=== PATIENT | female | born 1955 | race Caucasian/White ===

== ENCOUNTER 2016-08-16 11:13 | Inpatient (IN) ==
--- NOTE | 2016-08-16 08:32 | Discharge Summary ---
<Dyana Castro - Last Filed: 08/16/16 12:33> - Discharge Medications Home Medications: Albuterol Sulfate [Albuterol Inhaler] 2 puff IH Q4H PRN 08/09/15 [History] Aspirin [Adult Low Dose Aspirin EC] 81 mg PO DAILY 08/09/15 [History] Atorvastatin [Lipitor] 40 mg PO DAILY 08/09/15 [History] Beclomethasone Diprop 40mcg [QVAR 40 mcg] 2 gm IH BID 08/09/15 [History] Citalopram [CeleXA] 10 mg PO DAILY 08/09/15 [History] Ferrous Sulfate 324 mg PO BID 08/09/15 [History] Levothyroxine Sodium [Synthroid] 225 mcg PO DAILY 08/09/15 [History] Lisinopril/Hydrochlorothiazide [Zestoretic 10-12.5 mg Tablet] 1 each PO DAILY [History] Metformin HCl [Glucophage] 1,000 mg PO BID 08/09/15 [History] NIFEdipine [Nifedipine ER] 30 mg PO DAILY 08/09/15 [History] Pantoprazole Sodium [Protonix] 40 mg PO DAILY 08/09/15 [History] Pioglitazone [Actos] 45 mg PO DAILY 08/09/15 [History] Polyethylene Glycol 3350 [MiraLAX] 17 gm PO DAILY 11/26/15 [History] Ranitidine HCl [Zantac] 150 mg PO BID 11/26/15 [History] Solifenacin Succinate [Vesicare] 5 mg PO DAILY 11/26/15 [History] Spironolactone [Aldactone] 25 mg PO DAILY 11/26/15 [History] OxyCODONE Immed Rel [Roxicodone 5 MG] 5 - 10 mg PO Q6HR PRN #40 tablet 08/16/16 [Rx] Allergies/Adverse Reactions: Allergies No Known Allergies Allergy (Verified 08/16/16 13:22) Primary care physician: Ximena Merchant, - Patient Status Disposition: Home, Self-Care Condition: Good - Discharge Instructions Follow Up With: Mekhi Underwood MD [Partnered Physician] - 09/06/16 3:35 pm Dyana Castro, PAC [Physician Hoisting Pile Driving Engineer] - 08/23/16 1:00 pm Ximena Merchant MD [Primary Care Provider] - Osvaldo Mosley MD [Partnered Physician] - 01/04/17 9:00 am - Hospital Course Hospital course: Ms. Hardy is a 61 year old female - Time Spent with Patient Total time spent providing and/or coordinating discharge services: <KjMekhi - Last Filed: 08/17/16 08:24> Date of Encounter: 08/17/16 Time of Encounter: 08:23 - Discharge Diagnosis (1) Rotator cuff tear arthropathy of right shoulder Priority: Primary Status: Acute (2) Obesity Priority: Secondary Status: Chronic Qualifiers: Obesity type: unspecified obesity type Obesity severity: unspecified obesity severity Qualified Code(s): E66.9 - Obesity, unspecified (3) HLD (hyperlipidemia) Priority: Secondary Status: Chronic Qualifiers: Hyperlipidemia type: unspecified Qualified Code(s): E78.5 - Hyperlipidemia , unspecified (4) COPD (chronic obstructive pulmonary disease) Priority: Secondary Status: Chronic Qualifiers: COPD type: unspecified COPD Qualified Code(s): J44.9 - Chronic obstructive pulmonary disease, unspecified (5) DMII (diabetes mellitus, type 2) Priority: Secondary Status: Chronic Qualifiers: Diabetes mellitus complication status: without complication Qualified Code( s): E11.9 - Type 2 diabetes mellitus without complications (6) KAILEY (obstructive sleep apnea) Priority: Secondary Status: Chronic Primary care physician: Ximena Merchant, - Patient Status Functional capacity at discharge: independent ambulation Overall status at discharge: patient is progressing back to baseline - Hospital Course Hospital course: Ms. Hardy is a 61 year old female The patient had an uneventful postoperative course. They received antibiotics and physical therapy and were discharged in stable condition. There will follow -up in the office in 2 weeks. - Time Spent with Patient Total time spent providing and/or coordinating discharge services:
--- NOTE | 2016-08-16 11:45 | History & Physical Report ---
Date of Encounter: 08/16/16 Time of Encounter: 11:44 24 Hour HP Update - Instructions Instructions: If the History and Physical is less than 30 days old and was completed prior to A.M. admission and or procedure and has NOT been updated on calendar day of procedure please complete this update prior to performing procedure. - Update Patient reports changes in Medical Condition: No Changes in assessment/condition: No Changes in Medication: No Preop tests/diagnostics Reviewed: Yes Surgery Remains Indicated: Yes Consent for Planned Operative Procedure(s) Verified: Yes - Pre-Operative Checklist Preoperative Checklist Indicated: No Prophylactic Antibiotic Ordered: Yes Is VTE Prophylaxis Indicated?: Yes
[2016-08-16] MEDS ORDERED: ceFAZolin 2,000 MG in D5% in Water (Mini-Bag+) 100 ML IVPB ONE (12:09)
[2016-08-16] MEDS ORDERED: Albuterol 2.5 MG/3 ML NEBULIZER IH ONE (12:34)
[2016-08-16] MEDS ORDERED: Famotidine 20 MG/2 ML VIAL IVP ONE (12:40)
--- NOTE | 2016-08-16 12:43 | Anesthesia Evaluation PreOp ---
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 HX Other Medical History: Diabetes Type II (Accu check 112), Thyroid, GERD, Other ( Morbid Obesity) Anesthesia History: No Prior Anesthetic Complications : No Alcohol Use: none Drug use: none Medications and Allergies Albuterol Sulfate [Albuterol Inhaler] 90 mcg IH Q4H PRN 08/09/15 [History] Aspirin [Adult Low Dose Aspirin EC] 81 mg PO DAILY 08/09/15 [History] Atorvastatin [Lipitor] 40 mg PO DAILY 08/09/15 [History] Beclomethasone Diprop 40mcg [QVAR 40 mcg] 2 gm IH BID 08/09/15 [History] Citalopram [CeleXA] 10 mg PO DAILY 08/09/15 [History] Ferrous Sulfate 324 mg PO BID 08/09/15 [History] Levothyroxine Sodium [Synthroid] 225 mcg PO DAILY 08/09/15 [History] Lisinopril/Hydrochlorothiazide [Zestoretic 10-12.5 mg Tablet] 1 each PO DAILY [History] Metformin HCl [Glucophage] 1,000 mg PO BID 08/09/15 [History] NIFEdipine [Nifedipine ER] 30 mg PO DAILY 08/09/15 [History] Pantoprazole Sodium [Protonix] 40 mg PO DAILY 08/09/15 [History] Pioglitazone [Actos] 45 mg PO DAILY 08/09/15 [History] Cefdinir [Omnicef] 300 mg PO BID 11/26/15 [History] Polyethylene Glycol 3350 [MiraLAX] 17 gm PO DAILY 11/26/15 [History] Ranitidine HCl [Zantac] 150 mg PO BID 11/26/15 [History] Solifenacin Succinate [Vesicare] 5 mg PO DAILY 11/26/15 [History] Spironolactone [Aldactone] 25 mg PO DAILY 11/26/15 [History] OxyCODONE Immed Rel [Roxicodone 5 MG] 5 - 10 mg PO Q6HR PRN #40 tablet 08/16/16 [Rx] Allergies No Known Allergies Allergy (Unverified 07/28/15 14:07) - Meds/Allergy Pre-op Review Medications Reviewed: Yes Allergies Reviewed: Yes Beta Blockers on Current Med List: No Anesthesia Results - Labs Laboratory Tests 07/31/16 07/31/16 13:37 13:37 Hgb 12.3 Hct 38.1 Plt Count 238 Sodium 139 Potassium 4.4 BUN 21 H Creatinine 0.95 - Imaging EKG: report reviewed (SB) Additional studies: EF 60% ECHO 2013 Anesthesia Exam O2 Sat Height 1.63 m Height 1.63 m Height 1.63 m Weight 142.428 kg Weight 142.428 kg Weight 142.428 kg O2 Sat by Pulse Oximetry 94 Vital Signs Temp Pulse Resp BP Pulse Ox 97.8 F 58 18 134/71 94 L 08/16/16 11:41 08/16/16 11:41 08/16/16 11:41 08/16/16 11:41 08/16/16 11:41 Height: 5'4 Weight: 314 lbs NPO (# of Hours): MN Pain Scale: 0 - HEENT Pupil (Motor): Pupils equal, EOMI Mallampati: III Teeth: Normal Oral Opening: Greater than 3 - WAFER [employer]ODUCTION LEAD WORKER LOC: Oriented [employer]AFER PRODUCTION LEAD WORKER Motor: Normal RUE, Normal LUE, Normal RLE, Normal LLE, Normal Face [employer]ER [employer]ODUCTION LEAD WORKER Sensory: Normal: RUE, LUE, RLE, LLE, Face - Cardiac Rhythm: Regular Murmur: None JVD: No Carotid Bruit: No - Pulmonary Breath Sounds: bilateral Clear Respiratory Effort: Symmetrical Anesthesia Assess/Plan ASA Score: 3 (MO HTN) Modified Kina Scale for Level of Consciousness: Cooperative, oriented, and tranquil Anesthetic Plan: General, Regional Monitoring Plan: Standard Monitors Recovery Plan: PACU (Discussed GA, agreews to proceed)
[2016-08-16] MEDS ORDERED: Vancomycin 2,000 MG in D5% in Water 250 ML IV ONE (12:57)
[2016-08-16] MEDS ORDERED: Tetracaine/PF 20 MG/2 ML AMPUL SPINA ONE (13:00)
[2016-08-16] MEDS ORDERED: ROPIVACAINE HCL/PF 0.5% 30 ML VIAL ONE (13:00)
[2016-08-16] MEDS ORDERED: Bupivacaine/Clonidine Syringe 1 EACH SYRINGE ONE (13:01)
[2016-08-16] MEDS: Ringers Solution, Lactated 1,000 ML IVC SCH ×2 (13:02→15:30)
--- NOTE | 2016-08-16 13:34 | Anesthesia Procedures ---
Date of Encounter: 08/16/16 Time of Encounter: 13:23 Procedures: Anesthesia - Nerve Block Procedure Date: 08/16/16 Time: 13:23 Allergies/Adv Reactions: [id number] Pre-op Diagnosis: R shoulder RTC arthropathy Surgical Procedure: R TSR, Reverse Checklist: Correct Patient Identifier, Correct procedure, History checked Correct side: Right Blood Thinner: No Monitor Applied: EKG, BP, Pulse Oximetry Supplemental Oxygen via Nasal Cannula (L/min): 4 Sedation: Versed (mg): 3 Sedation: Fentanyl (mcg): 50 Indication: Post Op Analgesia (requested by Dr. Underwood) Pre-op Neuro Deficits: No Block Type: Supraclavicular, Other (SCP, ICB) Catheter placed: No Sterile Technique: Yes Ultrasound used: Yes Anatomy identified: Yes Visual spread of Local: Yes Neuro Stimulation: No Blood on Needle Aspiration: No Smooth Injection of Local: Yes Pain with Injection of Local: No Prep: Chlorhexadine Needle: 22 x 50 mm Stimuplex Local: 0.25% Bupivicaine w/Clonidine 20 mcg/cc (20mL), Tetracaine (1%, 2mL), Ropivacaine (30mL 0.5%) Number of Attempts: 1 Complications: None/effective block Vitals: 3 Vital Signs Time preprocedure postprocedure BP 124/69 125/83 Pulse 54 64 Resp 16 15 O2 Sat 99 98
[2016-08-16] MEDS ORDERED: Ondansetron 4 MG/2 ML VIAL IVP PRN ×2 (13:35→15:58)
[2016-08-16] MEDS ORDERED: *HR* HYDROmorphone (PF) 1 MG/ML SYRINGE IVP PRN (13:35)
[2016-08-16] MEDS ORDERED: *HR* Labetalol 100 MG/20 ML MDV IVP PRN (13:35)
[2016-08-16] MEDS ORDERED: Vancomycin 1,000 MG VIAL ONE (13:38)
[2016-08-16] MEDS ORDERED: *HR* Midazolam HCl 2 MG/2 ML VIAL ONE (14:14)
[2016-08-16] MEDS ORDERED: Lidocaine -MPF 2% 2 ML VIAL ONE (14:14)
[2016-08-16] MEDS ORDERED: Lidocaine -MPF 4% 5 ML AMPUL ONE (14:14)
[2016-08-16] MEDS ORDERED: *HR* FentaNYL (PF) 100 MCG/2 ML VIAL ONE (14:14)
[2016-08-16] MEDS ORDERED: *HR* Propofol 200 MG/20 ML VIAL IVP ONE (14:14)
--- NOTE | 2016-08-16 14:40 | Orthopedic Operative Note ---
Date of procedure: 08/16/16 Pre-op diagnosis: Right cuff tear arthropathy Post-op diagnosis: same Procedure: Procedure: Right Total Shoulder Replacment Reverse Estimated blood loss: 200 cc Hardware:Arthrex medium glenoid baseplate, 2 4.5 screws. 1 6.5 screw, 39 lateral glenosphere, 6 humeral stem, poly insert 3 and 6 metal Exam Under anesthesia: Full motion and no instability Procedural Notes: Irreparable tear supraspinatus tendon. Operative procedure: The patient was brought to the operating room and placed on the operating room table. After general anesthesia was administered the operative shoulder was examined. Findings were noted. The patient was placed in the modified beachchair position. All pressure points were padded appropriately. And the head was stabilized in the neutral position. The operative extremity was prepped and draped in the sterile surgical fashion. The patient received IV antibiotics prior to skin incision. A standard deltopectoral approach was made to the operative shoulder. Incision was made to the skin and subcutaneous tissue,hemo stasis was obtained with Bovie cautery. Using careful blunt dissection the cephalic vein was identified and mobilized medially. The deltopectoral interval was developed and the clavipectoral fascia was incised. The subscap was released off the lesser tuberosity and tagged with #2 FiberWire suture. The humerus was dislocated patient noted to have irreparable tear supraspinatus tendon, and the humeral cut was made along the anatomic neck. Anterior and posterior Bankart retractors were placed to expose the glenoid. The glenoid guide was seated and the centering hole was made. It was reamed with the appropriate reamer. The median baseplate was seated and secured with (2) 4.5 screws and one 6.5 screw. The baseplate was irrigated and dried and the turning and lateral Glenosphere was seated and secured with the Burton taper. The Burton taper was tested and found to be secure the humerus was redislocated and prepared with the diaphyseal reamers, followed by a broaching process up to the appropriate size 6 in the patient's anatomic version. The metaphyseal reamer was then utilized. Trial reduction found the shoulder to be relocatable. Trial components were removed and drill holes were placed in the lesser tuberosity. They were filled with #5 FiberWire suture . These sutures were used for a subscap repair. The appropriate 6 stem was impacted in place in the patient's anatomic version. Trial reduction found the shoulder to be relocatable and stable with the appropriate 6 metal 3 Kamla Trial component was removed and the real 6 metal 3 Kamla was seated and secured the shoulder was reduced. The shoulder had excellent motion and excellent stability and no evidence of dislocation. The deep tissue was irrigated with pulse irrigation. The subscap was repaired. The deltopectoral interval was closed with a running #1 PDS suture, subcutaneous tissue was irrigated and closed with 0 PDS suture, the skin was closed with Dermabond. The patient was placed in a sterile dressing, abduction brace and extubated. The patient was then transferred to the recovery room in stable condition. Anesthesia: JULIANA Surgeon: Mekhi Underwood Career Technical Education Instructor: Dyana Castro Condition: stable Disposition: PACU
[2016-08-16] MEDS ORDERED: Dexamethasone 4 MG/ML VIAL ONE (14:41)
[2016-08-16] MEDS ORDERED: Ondansetron 4 MG/2 ML VIAL ONE (14:41)
[2016-08-16] MEDS ORDERED: EPHEDrine 50 MG/ML VIAL ONE (14:44)
--- NOTE | 2016-08-16 15:25 | Anesthesia Evaluation Post Op ---
Date of Encounter: 08/16/16 Time of Encounter: 14:24 - Vital Signs Vital Signs: Vital Signs/O2 Sat/Glucose, Most Current Temp Pulse Resp BP Pulse Ox 08/16/16 15:05 51 16 110/64 97 08/16/16 14:55 98.2 F 57 14 107/52 96 08/16/16 13:25 64 16 125/83 95 08/16/16 13:15 57 16 124/69 96 08/16/16 13:06 18 134/71 94 L 08/16/16 11:41 97.8 F 58 18 134/71 94 L - Lungs Lungs: Clear Ascult./Percussion - Airway Airway: Non-obstructed - Cardiovascular Regular Rate - Mental Status Mental Status: Alert & Oriented, Answers Appropriately - Pain Pain Scale: 0 - Nausea Vomiting Nausea Vomiting: Not Present - Hydration Hydration: Ice chips, Has not voided - Discharge PostOp Status: Transfer Patient to floor
[2016-08-16 15:38] LABS: Hematocrit 36.7 % (35.3-44.9); Hemoglobin 12.5 g/dL (11.5-15.4)
[2016-08-16] MEDS ORDERED: Sennosides 8.6 MG TABLET PO PRN (15:58)
[2016-08-16] MEDS ORDERED: Temazepam 15 MG CAPSULE PO PRN (15:58)
[2016-08-16] MEDS ORDERED: *HR* OxyCODONE Immed Rel 5 MG TABLET PO PRN (15:58)
[2016-08-16] MEDS ORDERED: MOM Conc 10 ML UD.LIQ PO PRN (15:58)
[2016-08-16] MEDS ORDERED: Naloxone 0.4 MG/ML INJ IVP PRN (15:58)
[2016-08-16] MEDS ORDERED: ceFAZolin 3,000 MG in D5% in Water 100 ML IVPB SCH (16:00)
[2016-08-16] MEDS: *HR* Enoxaparin 30 MG/0.3 ML SYRINGE SQ SCH (17:21)
[2016-08-16] MEDS ORDERED: *HR* Enoxaparin 30 MG/0.3 ML SYRINGE SQ SCH (18:00)
[2016-08-16] MEDS: Beclomethasone 40mcg MDI IH SCH (20:56)
[2016-08-16] MEDS: ceFAZolin 3,000 MG in D5% in Water 100 ML IVPB SCH (21:16)
[2016-08-16] MEDS: Famotidine 20 MG TABLET PO SCH (21:19)
[2016-08-16] MEDS: *HR* Metformin 500 MG TABLET PO SCH (21:20)
[2016-08-17 05:47] LABS: Hematocrit 35.9 % (35.3-44.9); Hemoglobin 12.2 g/dL (11.5-15.4)
[2016-08-17] MEDS: *HR* OxyCODONE Immed Rel 5 MG TABLET PO PRN ×4 (05:49→19:24)
[2016-08-17] MEDS: *HR* Enoxaparin 30 MG/0.3 ML SYRINGE SQ SCH ×2 (05:50→16:56)
[2016-08-17] MEDS: ceFAZolin 3,000 MG in D5% in Water 100 ML IVPB SCH (05:50)
[2016-08-17] MEDS: Famotidine 20 MG TABLET PO SCH ×2 (07:28→21:13)
[2016-08-17] MEDS: Spironolactone 25 MG TABLET PO SCH (07:28)
[2016-08-17] MEDS: Aspirin Enteric Coated 81 MG Tablet PO SCH (07:28)
[2016-08-17] MEDS: *HR* Pioglitazone 45 MG TABLET PO SCH (07:28)
[2016-08-17] MEDS: *HR* Metformin 500 MG TABLET PO SCH ×2 (07:28→21:12)
[2016-08-17] MEDS: NIFEdipine XL (24 HR) 30 MG TAB.ER.24 PO SCH (07:28)
[2016-08-17] MEDS: Acetaminophen 325 MG TABLET PO PRN (07:30)
[2016-08-17] MEDS: Beclomethasone 40mcg MDI IH SCH ×2 (08:02→21:02)
--- NOTE | 2016-08-17 08:25 | Orthopedics Progress Note ---
Date of Encounter: 08/17/16 Time of Encounter: 08:25 - Assessment and Plan (1) Rotator cuff tear arthropathy of right shoulder Current Visit: Yes Status: Acute (2) Obesity Current Visit: No Status: Chronic Qualifiers: Obesity type: unspecified obesity type Obesity severity: unspecified obesity severity Qualified Code(s): E66.9 - Obesity, unspecified (3) HLD (hyperlipidemia) Current Visit: No Status: Chronic Qualifiers: Hyperlipidemia type: unspecified Qualified Code(s): E78.5 - Hyperlipidemia , unspecified (4) COPD (chronic obstructive pulmonary disease) Current Visit: No Status: Chronic Qualifiers: COPD type: unspecified COPD Qualified Code(s): J44.9 - Chronic obstructive pulmonary disease, unspecified (5) DMII (diabetes mellitus, type 2) Current Visit: No Status: Chronic Qualifiers: Diabetes mellitus complication status: without complication Qualified Code( s): E11.9 - Type 2 diabetes mellitus without complications (6) KAILEY (obstructive sleep apnea) Current Visit: No Status: Chronic Subjective Interval history: Patient was seen this morning doing well without complaints. Afebrile vital signs stable. Operative extremity: Neurovascularly intact Dressing clean dry and intact Calves nontender Assessment and plan: Continue with postoperative care Discharged today Objective Vital signs: Vital Signs Temp Pulse Resp BP Pulse Ox 08/17/16 08:03 16 95 08/17/16 06:23 97.9 F 58 16 117/73 95 08/17/16 04:45 97.8 F 53 15 114/76 94 L 08/17/16 00:00 97.7 F 59 16 106/64 93 L 08/16/16 20:56 22 87 L 08/16/16 19:15 97.7 F 62 15 135/68 92 L 08/16/16 18:14 98.4 F 57 16 123/74 90 L 08/16/16 17:19 97.3 F L 53 12 101/65 96 08/16/16 16:45 97.5 F L 60 16 140/74 93 L 08/16/16 16:25 98.4 F 56 16 108/72 94 L 08/16/16 15:35 52 16 117/59 96 08/16/16 15:25 98.0 F 52 16 117/62 96 08/16/16 15:15 54 16 113/67 96 08/16/16 15:05 51 16 110/64 97 08/16/16 14:55 98.2 F 57 14 107/52 96 08/16/16 13:25 64 16 125/83 95 08/16/16 13:15 57 16 124/69 96 08/16/16 13:06 18 134/71 94 L 08/16/16 11:41 97.8 F 58 18 134/71 94 L Intake and Output 08/16/16 08/17/16 08/17/16 23:59 07:59 15:59 Intake Total 100 / 100 Balance 100 / 100 Intake: IV Fluids 100 / 100 Ancef 3,000 MG In 100 / 100 Dextrose 5% 100 ML @ 200 mls/hr IVPB Q8H [facility] Rx#: [id number] Other: Blood Glucose* 199 109 - Labs CBC & BMP: 08/17/16 05:33 Labs: Abnormal lab results POC Glucose 112 (58-89) H 08/16/16 15:56 - VTE Documentation of Mechanical Device: Venous foot pump, device Consult Discharge Plan - Plan Referrals: Mekhi Underwood MD [Partnered Physician] - 09/06/16 3:35 pm Dyana Castro, PAC [Physician Wastewater Treatment Plant Attendant] - 08/23/16 1:00 pm Ximena Merchant MD [Primary Care Provider] - Osvaldo Mosley MD [Partnered Physician] - 01/04/17 9:00 am
[2016-08-17] MEDS ORDERED: LEVOTHYROXINE SODIUM 225 MCG PO SCH (09:00)
[2016-08-17] MEDS: *HR* HYDROmorphone (PF) 1 MG/ML SYRINGE IVP PRN ×3 (11:59→21:09)
[2016-08-18] MEDS: *HR* OxyCODONE Immed Rel 5 MG TABLET PO PRN ×3 (00:42→09:21)
[2016-08-18] MEDS: *HR* HYDROmorphone (PF) 1 MG/ML SYRINGE IVP PRN (01:42)
[2016-08-18 05:02] LABS: Hematocrit 33.4 % (35.3-44.9); Hemoglobin 10.9 g/dL (11.5-15.4)
[2016-08-18] MEDS: *HR* Enoxaparin 30 MG/0.3 ML SYRINGE SQ SCH (05:02)
--- NOTE | 2016-08-18 06:22 | Orthopedics Progress Note ---
Date of Encounter: 08/18/16 Time of Encounter: 06:21 - Assessment and Plan (1) Rotator cuff tear arthropathy of right shoulder Current Visit: Yes Status: Acute (2) Obesity Current Visit: No Status: Chronic Qualifiers: Obesity type: unspecified obesity type Obesity severity: unspecified obesity severity Qualified Code(s): E66.9 - Obesity, unspecified (3) HLD (hyperlipidemia) Current Visit: No Status: Chronic Qualifiers: Hyperlipidemia type: unspecified Qualified Code(s): E78.5 - Hyperlipidemia , unspecified (4) COPD (chronic obstructive pulmonary disease) Current Visit: No Status: Chronic Qualifiers: COPD type: unspecified COPD Qualified Code(s): J44.9 - Chronic obstructive pulmonary disease, unspecified (5) DMII (diabetes mellitus, type 2) Current Visit: No Status: Chronic Qualifiers: Diabetes mellitus complication status: without complication Qualified Code( s): E11.9 - Type 2 diabetes mellitus without complications (6) KAILEY (obstructive sleep apnea) Current Visit: No Status: Chronic Subjective Interval history: Patient was seen this morning doing well without complaints. Afebrile vital signs stable. Operative extremity: Neurovascularly intact Dressing clean dry and intact Calves nontender Assessment and plan: Continue with postoperative care Discharged today held yesterday for pain control Objective Vital signs: Vital Signs Temp Pulse Resp BP Pulse Ox 08/18/16 01:41 97.9 F 61 16 111/67 93 L 08/17/16 21:02 18 92 L 08/17/16 20:47 98.2 F 59 17 110/67 92 L 08/17/16 14:08 97.9 F 68 16 119/78 95 08/17/16 11:10 97.6 F 63 16 112/62 96 08/17/16 08:03 16 95 08/17/16 06:23 97.9 F 58 16 117/73 95 Intake and Output 08/17/16 08/17/16 08/18/16 15:59 23:59 07:59 Intake Total 810 / 810 Output Total 750 / 750 Balance 60 / 60 Intake: Oral 810 / 810 Output: Urine 750 / 750 Other: Meal Breakfast Percent of Meal Consumed 100% # Bowel Movements 1 Blood Glucose* 141 158 - Labs CBC & BMP: 08/18/16 04:40 Labs: Abnormal lab results Hgb 10.9 g/dL (11.5-15.4) L 08/18/16 04:40 Hct 33.4 % (35.3-44.9) L 08/18/16 04:40 POC Glucose 133 (58-89) H 08/17/16 16:56 - VTE Documentation of Mechanical Device: Venous foot pump, device Consult Discharge Plan - Plan Additional Instructions: Discharge Instructions: Total Shoulder Please call [facility] ([phone]), your Primary Care Physician, or report to the Emergency Room if you have any of the following symptoms: Nausea, vomiting, fever greater that 101.5, swelling, chest pain, shortness of breath, increased pain/redness/drainage/odor for your incision site, numbness/ tingling, or any other concerning symptoms. ACTIVITY: Always keep your arm in the sling. Do not raise your arm away from your body. Do not use your arm to help with getting in or out of bed. No weight bearing permitted. Only perform those exercises given to you by your therapist. MEDICATIONS: Upon discharge resume your home medications. Take all the medications as prescribed. Take a stool softener if taking narcotic pain medications. Stool softeners are only effective if you drink enough fluids. Drink 6-8 glass of water or fluids a day, unless this is not allowed for another health problem. Despite using stool softeners, if you haven't had a bowel movement in 3 days, please switch to a gentle laxative. Gentle laxatives are sold over the counter. You should have a bowel movement within 24 hours, if not call the office. You will be discharged from the hospital with a prescription for pain medication. You are encouraged to decrease the use of narcotic pain medication as tolerated. Should you require a refill, please call the office. [facility] prescribes narcotic pain medication for only 4-6 weeks after surgery. If you require pain medication beyond this time period, you may be referred to your Primary Care Physician or to the Pain Clinic for further evaluation. Plan ahead for refills on pain medication as many narcotics either need to be picked up at the office or mailed. It is best to call 48-72 hours in advance of needing a prescription refill so you don't run out of medication. To help control the post-operative pain, you may take NSAIDs (Aleve,Advil, Motrin, ibuprofen, naprosyn) or Tylenol as prescribed on the bottle in addition to the pain medication. WOUND CARE: Leave the dressing on for 7 days. You may change the dressing if it becomes saturated greater than 50%. You can shower but not a tub bath or submerge your incision in water. Wash your hands with antibacterial soap, rinse and dry prior to any wound care. If you have beatriz the visiting nurse or rehab facility can remove the stapes 10-14 days after surgery and place steri -strips across the wound. Leave the steri-strips in place until they fall off on their won. You may let water from the shower run on top of the steri- stirips. If you do not have a visiting nurse or rehab facility, you will need to return to the office at 10-14 days for the beatriz to be removed. FOLLOW-UP: Please follow up with your surgeon in the orthopedic clinic, as scheduled Referrals: Mekhi Underwood MD [Partnered Physician] - 09/06/16 3:35 pm Dyana Castro PAC [Physician Risk Manager] - 08/23/16 1:00 pm Ximena Merchant MD [Primary Care Provider] - 08/28/16 2:00 pm Osvaldo Mosley MD [Partnered Physician] - 01/04/17 9:00 am
[2016-08-18] MEDS: Spironolactone 25 MG TABLET PO SCH (07:34)
[2016-08-18] MEDS: *HR* Pioglitazone 45 MG TABLET PO SCH (07:34)
[2016-08-18] MEDS: Aspirin Enteric Coated 81 MG Tablet PO SCH (07:34)
[2016-08-18] MEDS: *HR* Metformin 500 MG TABLET PO SCH (07:34)
[2016-08-18] MEDS: Acetaminophen 325 MG TABLET PO PRN (07:35)
[2016-08-18] MEDS: NIFEdipine XL (24 HR) 30 MG TAB.ER.24 PO SCH (07:35)
[2016-08-18] MEDS: Famotidine 20 MG TABLET PO SCH (07:35)
[2016-08-18 07:36] VITALS: BP 116/73
[2016-08-18] MEDS: Beclomethasone 40mcg MDI IH SCH (07:49)
== END 2016-08-18 10:45 | disposition home or self-care (01) | DRG 315 ==
LOC: SAMDAY 11:13 → 3NENU 15:53
PROVIDERS: ADMIT Orthopaedic Surgery; ATTEND Orthopaedic Surgery

== ENCOUNTER 2020-02-12 05:56 | Inpatient (IN) ==
[2020-02-12 06:42] LABS: Basophils % 0.2 %; Hematocrit 39.5 % (35.3-44.9); Hemoglobin 12.8 g/dL (11.5-15.4); Immature Granulocytes % 0.9 % (0-4); Lymphocytes # 0.6 K/mcL (0.6-4.6); Lymphocytes % 5.2 %; Mean Corpuscular HGB Conc 32.4 g/dL (31.6-35.5); Mean Corpuscular Hemoglobin 27.9 pg (28.0-33.3); Mean Corpuscular Volume 86.2 fL (83.0-100.0); Mean Platelet Volume 10.1 fL (9.4-12.4); Monocytes # 0.4 K/mcL (0.0-1.3); Monocytes % 3.6 %; Neutrophils # 10.8 K/mcL (1.6-8.9); Platelet Count 251 K/mcL (140-400); Red Blood Count 4.58 M/mcL (3.82-4.97); Red Cell Distribution Width 13.8 % (11.5-14.5); Segmented Neutrophils % 90.1 %; White Blood Count 11.9 K/mcL (4.3-11.1)
[2020-02-12 06:51] LABS: INR 0.9; Prothrombin Time 10.5 Seconds (9.4-12.1)
[2020-02-12 06:59] LABS: BUN/Creatinine Ratio 22 (6-26); Blood Urea Nitrogen 18 mg/dL (8-23); Calcium 9.3 mg/dL (8.6-10.3); Carbon Dioxide 28 mEq/L (23-29); Chloride 99 mEq/L (98-107); Glucose 343 mg/dL (70-105); Osmolality,Calculated 293 (280-300); Potassium 4.3 mEq/L (3.5-5.1); Sodium 134 mEq/L (136-145); eGFR For African Americans > 60 (> 60); eGFR For Non-African Americans > 60 (> 60)
[2020-02-12 07:00] LABS: Troponin I < 0.03 ng/mL (< 0.04)
[2020-02-12] MEDS ORDERED: Isovue-370 500 ML BOTTLE IVP ONE (07:06)
[2020-02-12 07:14] LABS: Thyroid Stimulating Hormone 1.299 mcIU/mL (0.340-5.600)
[2020-02-12 08:25] LABS: Adenovirus Not Detected (Not Detect); Bordetella Pertussis Not Detected (Not Detect); Chlamydophila pneumoniae Not Detected (Not Detect); Coronavirus 229E Not Detected (Not Detect); Coronavirus HKU1 Not Detected (Not Detect); Coronavirus NL63 Not Detected (Not Detect); Coronavirus OC43 Not Detected (Not Detect); Human Metapneumovirus Not Detected (Not Detect); Human Rhinovirus/Enterovirus Not Detected (Not Detect); Influenza A Subtype 2009 H1 Not Detected (Not Detect); Influenza B Not Detected (Not Detect); Mycoplasma pneumoniae Not Detected (Not Detect); Parainfluenza Virus 1 Not Detected (Not Detect); Parainfluenza Virus 2 Not Detected (Not Detect); Parainfluenza Virus 3 Not Detected (Not Detect); Parainfluenza Virus 4 Not Detected (Not Detect); Respiratory Syncytial Virus Not Detected (Not Detect); SARS-CoV-2 Not Detected (Not Detect)
[2020-02-12] MEDS ORDERED: Naloxone 0.4 MG/ML INJ IVP PRN (09:06)
[2020-02-12] MEDS ORDERED: Ipratropium/Albuterol Neb 3 ML IH PRN (13:07)
[2020-02-12] MEDS: MethylPREDNISolone 40 MG/ML VIAL IVP SCH ×2 (14:59→19:59)
[2020-02-12] MEDS ORDERED: D5% in Water 1,000 ML IVC PRN (16:09)
[2020-02-12] MEDS ORDERED: *HR* Dextrose 50 % in Water (Vial) 50 ML VIAL IVP PRN (16:09)
[2020-02-12] MEDS ORDERED: Dextrose Gel 15 GM/37.5 ML TUBE PO PRN ×2 (16:09)
[2020-02-12] MEDS: Insulin LISPRO 300 UNITS/3 ML VIAL SQ SCH (17:36)
[2020-02-13 01:20] LABS: Basophils % 0.1 %; Hematocrit 37.9 % (35.3-44.9); Hemoglobin 12.6 g/dL (11.5-15.4); Immature Granulocytes % 0.4 % (0-4); Lymphocytes # 0.5 K/mcL (0.6-4.6); Lymphocytes % 4.7 %; Mean Corpuscular HGB Conc 33.2 g/dL (31.6-35.5); Mean Corpuscular Hemoglobin 29.2 pg (28.0-33.3); Mean Corpuscular Volume 87.7 fL (83.0-100.0); Mean Platelet Volume 10.4 fL (9.4-12.4); Monocytes # 0.1 K/mcL (0.0-1.3); Monocytes % 1.1 %; Neutrophils # 9.4 K/mcL (1.6-8.9); Platelet Count 223 K/mcL (140-400); Red Blood Count 4.32 M/mcL (3.82-4.97); Red Cell Distribution Width 13.6 % (11.5-14.5); Segmented Neutrophils % 93.7 %
[2020-02-13 01:40] LABS: BUN/Creatinine Ratio 24 (6-26); Blood Urea Nitrogen 19 mg/dL (8-23); Carbon Dioxide 27 mEq/L (23-29); Chloride 98 mEq/L (98-107); Potassium 4.4 mEq/L (3.5-5.1); Sodium 135 mEq/L (136-145)
[2020-02-13 01:41] LABS: Calcium 9.6 mg/dL (8.6-10.3); Glucose 344 mg/dL (70-105); Osmolality,Calculated 296 (280-300); eGFR For African Americans > 60 (> 60); eGFR For Non-African Americans > 60 (> 60)
[2020-02-13] MEDS ORDERED: Acetaminophen 325 MG TABLET PO PRN (03:46)
[2020-02-13] MEDS: MethylPREDNISolone 40 MG/ML VIAL IVP SCH ×3 (04:33→21:29)
[2020-02-13] MEDS ORDERED: Regadenoson 0.4 MG/5 ML SYRINGE IVP ONE (06:21)
[2020-02-13] MEDS: Famotidine 20 MG TABLET PO SCH (08:29)
[2020-02-13] MEDS: Multivit/Ca/Min/Fe/FA 1 TAB TABLET PO SCH (08:29)
[2020-02-13] MEDS: lisinopriL 20 MG TABLET PO SCH (08:29)
[2020-02-13] MEDS: Insulin LISPRO 300 UNITS/3 ML VIAL SQ SCH ×3 (08:29→16:46)
[2020-02-13] MEDS: Aspirin Enteric Coated 81 MG Tablet PO SCH (08:29)
[2020-02-13] MEDS ORDERED: Perflutren Lipid Microsphere 1.3 ML in 0.9 % Sodium Chloride 8.7 ML IVP PRN (09:54)
[2020-02-13] MEDS: Insulin DETEMIR 100 UNIT/ML X5UNITS SQ SCH (13:08)
[2020-02-14] MEDS: MethylPREDNISolone 40 MG/ML VIAL IVP SCH (05:43)
[2020-02-14 07:45] LABS: Basophils % 0.1 %; Hematocrit 41.3 % (35.3-44.9); Hemoglobin 13.2 g/dL (11.5-15.4); Immature Granulocytes % 0.6 % (0-4); Lymphocytes % 8.8 %; Mean Corpuscular Hemoglobin 27.8 pg (28.0-33.3); Mean Corpuscular Volume 87.1 fL (83.0-100.0); Mean Platelet Volume 10.6 fL (9.4-12.4); Monocytes # 0.5 K/mcL (0.0-1.3); Monocytes % 3.9 %; Neutrophils # 10.2 K/mcL (1.6-8.9); Platelet Count 261 K/mcL (140-400); Red Blood Count 4.74 M/mcL (3.82-4.97); Red Cell Distribution Width 13.5 % (11.5-14.5); Segmented Neutrophils % 86.6 %; White Blood Count 11.7 K/mcL (4.3-11.1)
[2020-02-14 07:53] LABS: BUN/Creatinine Ratio 28 (6-26); Blood Urea Nitrogen 24 mg/dL (8-23); Calcium 9.6 mg/dL (8.6-10.3); Carbon Dioxide 30 mEq/L (23-29); Chloride 97 mEq/L (98-107); Glucose 257 mg/dL (70-105); Osmolality,Calculated 295 (280-300); Potassium 4.1 mEq/L (3.5-5.1); Sodium 136 mEq/L (136-145); eGFR For African Americans > 60 (> 60); eGFR For Non-African Americans > 60 (> 60)
[2020-02-14] MEDS: Aspirin Enteric Coated 81 MG Tablet PO SCH (08:28)
[2020-02-14] MEDS: Famotidine 20 MG TABLET PO SCH (08:28)
[2020-02-14] MEDS: Multivit/Ca/Min/Fe/FA 1 TAB TABLET PO SCH (08:28)
[2020-02-14] MEDS: Insulin LISPRO 300 UNITS/3 ML VIAL SQ SCH ×4 (08:29→20:37)
[2020-02-14] MEDS: lisinopriL 20 MG TABLET PO SCH (08:29)
[2020-02-14] MEDS: Insulin DETEMIR 100 UNIT/ML X5UNITS SQ SCH (08:43)
[2020-02-14] MEDS: *HR* Heparin 5,000 UNIT/ML VIAL SQ SCH (17:01)
[2020-02-14] MEDS ORDERED: polyethylene glycoL 3350 17 GM POWD.PACK PO PRN (19:20)
[2020-02-15 01:05] LABS: Basophils % 0.4 %; Eosinophils % 0.3 %; Hematocrit 40.8 % (35.3-44.9); Hemoglobin 13.6 g/dL (11.5-15.4); Immature Granulocytes % 0.7 % (0-4); Lymphocytes # 2.7 K/mcL (0.6-4.6); Lymphocytes % 23.8 %; Mean Corpuscular HGB Conc 33.3 g/dL (31.6-35.5); Mean Corpuscular Hemoglobin 29.2 pg (28.0-33.3); Mean Corpuscular Volume 87.6 fL (83.0-100.0); Mean Platelet Volume 10.2 fL (9.4-12.4); Monocytes # 1.1 K/mcL (0.0-1.3); Monocytes % 9.3 %; Neutrophils # 7.4 K/mcL (1.6-8.9); Platelet Count 249 K/mcL (140-400); Red Blood Count 4.66 M/mcL (3.82-4.97); Red Cell Distribution Width 13.5 % (11.5-14.5); Segmented Neutrophils % 65.5 %; White Blood Count 11.4 K/mcL (4.3-11.1)
[2020-02-15 01:27] LABS: BUN/Creatinine Ratio 22 (6-26); Blood Urea Nitrogen 23 mg/dL (8-23); Calcium 9.2 mg/dL (8.6-10.3); Carbon Dioxide 31 mEq/L (23-29); Chloride 96 mEq/L (98-107); Glucose 216 mg/dL (70-105); Osmolality,Calculated 290 (280-300); Potassium 4.5 mEq/L (3.5-5.1); Sodium 135 mEq/L (136-145); eGFR For African Americans > 60 (> 60); eGFR For Non-African Americans 52 (> 60)
[2020-02-15] MEDS: *HR* Heparin 5,000 UNIT/ML VIAL SQ SCH ×2 (05:37→17:21)
[2020-02-15] MEDS: Insulin LISPRO 300 UNITS/3 ML VIAL SQ SCH ×4 (08:02→20:27)
[2020-02-15] MEDS: Aspirin Enteric Coated 81 MG Tablet PO SCH (08:03)
[2020-02-15] MEDS: Famotidine 20 MG TABLET PO SCH (08:03)
[2020-02-15] MEDS: lisinopriL 20 MG TABLET PO SCH (08:03)
[2020-02-15] MEDS: Multivit/Ca/Min/Fe/FA 1 TAB TABLET PO SCH (08:03)
[2020-02-15] MEDS: predniSONE 20 MG TABLET PO SCH (08:03)
[2020-02-15] MEDS: Insulin DETEMIR 100 UNIT/ML X5UNITS SQ SCH (08:03)
[2020-02-15] MEDS ORDERED: Insulin DETEMIR 100 UNIT/ML X5UNITS SQ SCH (21:00)
[2020-02-16] MEDS: *HR* Heparin 5,000 UNIT/ML VIAL SQ SCH (04:19)
[2020-02-16 04:54] LABS: Basophils % 0.2 %; Hematocrit 43.4 % (35.3-44.9); Hemoglobin 14.2 g/dL (11.5-15.4); Immature Granulocytes % 0.9 % (0-4); Lymphocytes # 1.1 K/mcL (0.6-4.6); Lymphocytes % 8.8 %; Mean Corpuscular HGB Conc 32.7 g/dL (31.6-35.5); Mean Corpuscular Hemoglobin 28.9 pg (28.0-33.3); Mean Corpuscular Volume 88.4 fL (83.0-100.0); Mean Platelet Volume 10.5 fL (9.4-12.4); Monocytes # 0.5 K/mcL (0.0-1.3); Monocytes % 3.9 %; Neutrophils # 10.9 K/mcL (1.6-8.9); Platelet Count 264 K/mcL (140-400); Red Blood Count 4.91 M/mcL (3.82-4.97); Red Cell Distribution Width 13.6 % (11.5-14.5); Segmented Neutrophils % 86.2 %; White Blood Count 12.6 K/mcL (4.3-11.1)
[2020-02-16 05:10] LABS: BUN/Creatinine Ratio 29 (6-26); Blood Urea Nitrogen 29 mg/dL (8-23); Calcium 9.8 mg/dL (8.6-10.3); Carbon Dioxide 33 mEq/L (23-29); Chloride 95 mEq/L (98-107); Glucose 244 mg/dL (70-105); Osmolality,Calculated 290 (280-300); Potassium 4.9 mEq/L (3.5-5.1); Sodium 133 mEq/L (136-145); eGFR For African Americans > 60 (> 60); eGFR For Non-African Americans 55 (> 60)
[2020-02-16] MEDS: Insulin LISPRO 300 UNITS/3 ML VIAL SQ SCH ×3 (08:34→12:28)
[2020-02-16] MEDS ORDERED: 0.9 % Sodium Chloride 1,000 ML ONE ×2 (08:50→10:28)
[2020-02-16] MEDS ORDERED: *HR* FentaNYL (PF) 100 MCG/2 ML VIAL ONE (08:59)
[2020-02-16] MEDS ORDERED: *HR* Midazolam HCl 2 MG/2 ML VIAL ONE (08:59)
[2020-02-16] MEDS: lisinopriL 20 MG TABLET PO SCH (09:08)
[2020-02-16] MEDS: Multivit/Ca/Min/Fe/FA 1 TAB TABLET PO SCH (09:08)
[2020-02-16] MEDS: Famotidine 20 MG TABLET PO SCH (09:08)
[2020-02-16] MEDS: Aspirin Enteric Coated 81 MG Tablet PO SCH (09:08)
[2020-02-16] MEDS: predniSONE 20 MG TABLET PO SCH (09:15)
[2020-02-16] MEDS: Insulin DETEMIR 100 UNIT/ML X5UNITS SQ SCH (09:19)
[2020-02-16] MEDS ORDERED: Nitroglycerin 1,000 MCG/10 ML VIAL IV ONE (10:28)
[2020-02-16] MEDS ORDERED: *HR* Heparin 10,000 UNIT/10 ML VIAL ONE (10:28)
[2020-02-16] MEDS ORDERED: Heparin 1,000 UNITS/500 mL 500 ML ONE (10:28)
[2020-02-16] MEDS ORDERED: ISOVUE-370 200 ML INFUS..BTL ONE (10:28)
[2020-02-16] MEDS ORDERED: 0.9 % Sodium Chloride 500 ML IVC ONE (11:45)
[2020-02-16 12:57] LABS: Estimated Average Glucose 183 mg/dl
[2020-02-16 17:04] VITALS: BP 112/73
[2020-02-16] MEDS ORDERED: Insulin DETEMIR 100 UNIT/ML X5UNITS SQ SCH (21:00)
== END 2020-02-16 17:12 | disposition home or self-care (01) | DRG 287 ==
LOC: EMEROOARM 05:56 → 3BNU 05:56
PROVIDERS: ADMIT Internal Medicine; ATTEND Internal Medicine